=== PATIENT | female | born 1985 | race African-American/Black ===

== ENCOUNTER 2021-08-12 09:49 | Emergency (ER) | payer MEDICARE, SELFPAY ==
[2021-08-12 10:03] VITALS: BP 149/104; PULSE 100; RESP 16; TEMP 36.6; O2SAT 99
[2021-08-12 10:09] VITALS: BP 149/104; PULSE 100; RESP 16; TEMP 36.6; O2SAT 99
--- NOTE | 2021-08-12 10:39 | ED.WOUNDLAC ---
HPI - Wound/Laceration General Chief Complaint: Wound/Laceration Stated Complaint: abscess left breast Source: patient and RN notes reviewed Mode of arrival: ambulatory Limitations: no limitations History of Present Illness HPI narrative: Debra is a 36-year-old female patient who ambulated to [facility] today with complaint of sore on her left breast. Patient states the is the open area has been there 3 to 4 days. Patient states it is itchy . She states only minimal pain. Patient states she is on Jardiance and Metformin daily for diabetes. Patient states there has been minimal green drainage to the area. Patient states she was laying on a heated massage pad for almost an hour at onset. Patient has treated the area with Neosporin and gauze. Related Data Home Medications Medication Instructions Recorded Confirmed Advair Diskus 08/12/21 Jardiance 08/12/21 Singulair 08/12/21 irbesartan 08/12/21 metformin 08/12/21 Allergies Allergy/AdvReac Type Severity Reaction Status Date / Time No Known Allergies Allergy Verified 08/12/21 10:03 Review of Systems Review of Systems: CONSTITUTIONAL: Denies body aches, fever, chills, or sweats. EYES: Denies visual changes, redness, or discharge. ENT: Denies rhinorrhea, congestion, sore throat, or otalgia. CARDIOVASCULAR: Denies chest pain, palpitations, or edema. RESPIRATORY: Denies cough or dyspnea. GASTROINTESTINAL: Denies abdominal pain, nausea, vomiting, or diarrhea. GENITOURINARY: Denies dysuria or hematuria. SKIN: circular wound to left breast, MUSCULOSKELETAL: Denies back pain, joint pain, or myalgia. NEUROLOGIC: Denies headache, numbness, tingling, or weakness. PSYCH: Denies depression or anxiety. All systems reviewed & are unremarkable except as noted in HPI and below PMFSH Comments At time of signature, I have reviewed and agree with nursing past medical, surgical, social and family history unless otherwise noted. Please see nursing chart for further information. There is no relevant family history pertinent to the presenting complaint Exam Narrative: GENERAL: Well-appearing, well-nourished, and in no acute distress. HEAD: Normocephalic, atraumatic. EYES: EOMI. No redness or drainage. Conjunctivae normal. ENT: Mucous membranes pink and moist. Nares clear. No rhinorrhea. NECK: Normal AROM. Supple. MUSCULOSKELETAL: No bony tenderness. EXTREMITIES: Normal range of motion. No edema. SKIN: Warm, dry, Capillary refill normal. Normal skin turgor. 1.5 cm circular area left lateral breast, erythemic, with green dried center -fluctuant, soft. NEURO: No focal deficits. Alert and oriented x3. Gait steady. PSYCH: Normal affect. No signs of depression or anxiety. Course Vital Signs Vital signs: Vital Signs Temperature 36.6 C 08/12/21 10:03 Pulse Rate 100 08/12/21 10:03 Respiratory Rate 16 08/12/21 10:03 Blood Pressure 149/104 H 08/12/21 10:03 Pulse Oximetry 99 08/12/21 10:03 Temperature 36.6 C 08/12/21 10:09 Pulse Rate 100 08/12/21 10:09 Respiratory Rate 16 08/12/21 10:09 Blood Pressure 149/104 H 08/12/21 10:09 Pulse Oximetry 99 08/12/21 10:09 Reviewed. Pt has been instructed to follow up with her PCP regarding her elevated blood pressure today. MDM - Wound/Laceration Differential Diagnosis Differential diagnosis: Likely abscess, abrasion and avulsion of skin Medical Records Attestation: I reviewed the patient's medical records. Critical Care Time Critical Care Time Critical Care Time: No Discharge Plan Discharge Clinical Impression: Blister, Cellulitis Patient Disposition: Home, Self-Care Condition: Stable Instructions: Antibiotic Form, Cellulitis (ED) Additional Instructions: Take Antibiotics until completed. Follow up with your primary care in 3-5 days if no improvement. See your PMD sooner for increased drainage, fever, chills, or increased redness to area. Wash area twice amada
== END 2021-08-12 10:57 | disposition home or self-care (01) ==
PROVIDERS: Emergency Provider Nurse Practitioner Family
DX: S20.122A Blister (nonthermal) of breast, left breast, initial encounter (principal); X58.XXXA Exposure to other specified factors, initial encounter; N61.0 Mastitis without abscess; I10 Essential (primary) hypertension; J45.909 Unspecified asthma, uncomplicated; E11.9 Type 2 diabetes mellitus without complications
CPT/HCPCS: 99203; G0463

== ENCOUNTER 2021-09-03 10:55 | Emergency (ER) | payer MEDICARE, SELFPAY ==
[2021-09-03 11:02] VITALS: BP 133/93; PULSE 89; RESP 18; TEMP 36.6; O2SAT 100
--- NOTE | 2021-09-03 11:25 | ED.EAR ---
HPI - Ear Problem General Chief complaint: Ear Stated complaint: ear pain Source: patient and RN notes reviewed Mode of arrival: ambulatory Limitations: no limitations History of Present Illness HPI Narrative: Debra is a 36-year-old female patient ambulated into the [facility]. Patient states she has decreased hearing in the right ear. Patient states she also has pain in the right ear. Patient states she washed her ear out with peroxide. Patient states she is also taken Advil [id number]. Patient denies any nasal congestion or any other symptoms. MD Complaint: ear pain and decreased hearing Related Data Home Medications Medication Instructions Recorded Confirmed albuterol sulfate INHALATION 09/03/21 cyclobenzaprine mg 09/03/21 empagliflozin [Jardiance] mg 09/03/21 fluticasone propion-salmeterol INHALATION 09/03/21 [Advair HFA] ipratropium-albuterol ml INHALATION 09/03/21 irbesartan mg 09/03/21 levonorgestrel-ethinyl estrad tablet 09/03/21 [Altavera (28)] losartan 09/03/21 metformin mg PO 09/03/21 triamterene-hydrochlorothiazid cap 09/03/21 Allergies Allergy/AdvReac Type Severity Reaction Status Date / Time No Known Allergies Allergy Verified 09/03/21 11:07 Review of Systems Review of Systems: CONSTITUTIONAL: Denies body aches, fever, chills, or sweats. EYES: Denies visual changes, redness, or discharge. ENT: Denies rhinorrhea, congestion, sore throat, + right otalgia. CARDIOVASCULAR: Denies chest pain, palpitations, or edema. RESPIRATORY: Denies cough or dyspnea. GASTROINTESTINAL: Denies abdominal pain, nausea, vomiting, or diarrhea. GENITOURINARY: Denies dysuria or hematuria. SKIN: Denies rash, itching, or wounds. MUSCULOSKELETAL: Denies back pain, joint pain, or myalgia. NEUROLOGIC: Denies headache, numbness, tingling, or weakness. PSYCH: Denies depression or anxiety. All systems reviewed & are unremarkable except as noted in HPI and below PMFSH Comments At time of signature, I have reviewed and agree with nursing past medical, surgical, social and family history unless otherwise noted. Please see nursing chart for further information. There is no relevant family history pertinent to the presenting complaint Exam Narrative: GENERAL: Well-appearing, well-nourished, and in no acute distress. HEAD: Normocephalic, atraumatic. EYES: EOMI. No redness or drainage. Conjunctivae normal. ENT: Mucous membranes pink and moist. Nares clear. No rhinorrhea. Left tympanic membrane is dull without erythema. Right ear canal is obstructed with cerumen. The cerumen was removed. Right ear canal is erythemic and swollen. . Throat normal. Uvula midline. NECK: Normal AROM. Supple. CHEST: No respiratory distress. Clear to auscultation. MUSCULOSKELETAL: No bony tenderness. EXTREMITIES: Normal range of motion. No edema. SKIN: Warm, dry, no rash. Capillary refill normal. Normal skin turgor. NEURO: No focal deficits. Alert and oriented x3. Gait steady. PSYCH: Normal affect. No signs of depression or anxiety. Course Vital Signs Vital signs: Vital Signs Temperature 36.6 C 09/03/21 11:02 Pulse Rate 89 09/03/21 11:02 Respiratory Rate 18 09/03/21 11:02 Blood Pressure 133/93 H 09/03/21 11:02 Pulse Oximetry 100 09/03/21 11:02 Temperature 36.6 C 09/03/21 11:02 Pulse Rate 89 09/03/21 11:02 Respiratory Rate 18 09/03/21 11:02 Blood Pressure 133/93 H 09/03/21 11:02 Pulse Oximetry 100 09/03/21 11:02 Reviewed. Pt has been instructed to follow up with her PCP regarding her elevated blood pressure today. Procedures Ear Wax Removal Right Ear: Ear Wax Removal Date: 09/03/21 Ear Wax Removal Time: 11:20 Cerumenolytic Used: other (water and peroxide) Results: Re-examined: cerumen removed completely TM Examination: TM(s) intact, normal appearance Ear Canal Exam: atraumatic Patient Tolerated Procedure: well Compli
== END 2021-09-03 11:35 | disposition home or self-care (01) ==
PROVIDERS: Emergency Provider Nurse Practitioner Family
DX: H61.21 Impacted cerumen, right ear (principal); H66.001 Acute suppurative otitis media without spontaneous rupture of ear drum, right ear; I10 Essential (primary) hypertension; J45.909 Unspecified asthma, uncomplicated; E11.9 Type 2 diabetes mellitus without complications
CPT/HCPCS: 69209; 99213; G0463